=== PATIENT | male | born 1995 | race Caucasian/White ===

== ENCOUNTER 2017-07-27 17:48 | Emergency (ER) | payer OTHER ==
[~2017-07-27] VITALS: Ht 198.1 cm; Wt 81.6 kg
--- NOTE | ~2017-07-27 | CR181 ---
[facility] A Service of [facility] RADIOLOGY TEXT RESULTS PATIENT: CHAI LEAVITT LOCATION: [facility] : [birth year] UNIT #: [id number] AGE: [address]: ELIE CRUZ APRN SEX: M ORDER DR: [id number] [facility] [place] [facility]. [place], [place] [address] [id number] E MR#: [id number] Acc #: [id number] NAME: CHAI LEAVITT. : 1995 SEX: M STUDY DATE/TIME: 07/27/2017 18:43 UNIT: [facility] ROOM: STUDY DESCRIPTION: CR Lumbar Spine 2 or 3 Views Attending Physician: Elie Cruz Aprn Ordering Physician: Mercy White P.A.-C. Primary Care Physician: No Primary Care Physician MEDICAL IMAGING REPORT This report is preliminary unless electronic signature is present EXAM Lumbar spine series dated 07/27/2017 COMPARISON None. HISTORY Back pain for 4 days. FINDINGS 3 views of the lumbar spine were obtained. AP and lateral projections of the lumbar segment show good mineralization of both anterior and posterior elements. They are all anatomically normal without indication of fracture, dislocation, or malignant change of a sclerotic or lytic type. There is no congenital defect noted. The sacroiliac joints are normal. IMPRESSION Normal lumbar spine. Dictated by... Minoo Tirado M.D. THIS IS AN ELECTRONICALLY VERIFIED REPORT Minoo Tirado M.D. at 07/30/2017 9:16 AM CPR/df TD: 07/28/2017 10:48 JOB #: [id number] [facility] A Service [facility] RADIOLOGY TEXT RESULTS PATIENT: CHAI LEAVITT LOCATION: [facility] : 95 UNIT #: [id number] AGE: [address]: ELIE CRUZ APRN SEX: M ORDER DR: MEDICAL IMAGING REPORT Page 1 of 1 COPY
[~2017-07-27 17:48] MED LIST: ABILIFY PO; ADDERALLXR PO; DEPAKOTE PO; MOTRIN400 MG PO; VICODIN 5/500 T1 TAB PO
== END 2017-07-27 20:00 | disposition home or self-care (01) ==
LOC: CFTX 17:48 → CED 17:48 → CFTX 18:30
DX: G89.29 Other chronic pain (principal); M54.5 Low back pain; F17.210 Nicotine dependence, cigarettes, uncomplicated
CPT/HCPCS: 72100; 96372; 99283; J1885